=== PATIENT | female | born 1980 | race Caucasian/White ===

== ENCOUNTER 2020-02-24 21:04 | Emergency (ER) | payer BC ==
[~2020-02-24] VITALS: Ht 160 cm; Wt 85.0 kg
[~2020-02-24 21:04] MED LIST: AMOX/K CLAV500 MG OR; AMOXICILLIN500 MG; BENTYL20 MG OR; FLEXERIL OR; IBUPROFEN800 MG OR; LEVAQUIN750 MG OR; LORTAB 5 OR; NO MEDICATIONS; TRAMADOL HCL50 MG OR
[2020-02-24 22:03] LABS: HEMATOCRIT 38.8 % (37.0-47.0); HEMOGLOBIN 13.1 g/dl (12.0-16.0); IMMATURE GRANULOCYTES 0.4 % (0.0-5.0); MEAN CELL VOLUME 88.2 fL CALC (80.0-100.0); MEAN CORPUSCULAR HGB 29.8 pG CALC (26.0-32.0); MEAN CORPUSCULAR HGB CONC 33.8 g/dL CAL (32.0-36.0); NEUT# 7.39 thou/uL (2.00-7.15); RED BLOOD COUNT 4.4 mill/uL (4.20-5.60); RED CELL DISTRI WIDTH 12.7 % (11.5-15.5)
[2020-02-24 22:22] LABS: ALBUMIN 4.3 g/dL (3.2-5.0); ALKALINE PHOSPHATASE 63 u/l (38-126); ANION GAP 11 (6-22 (CALC)); BUN 13 mg/dL (7-17); BUN/CREATININE RATIO 22 (12-20 (CALC)); CARBON DIOXIDE 27 mmol/l (22-30); CHLORIDE 102 mmol/l (95-108); CREATININE 0.6 mg/dL (0.5-1.0); GFR > 60 ML/MIN (>=60 (CALC)); GFR FOR AFR.AMER. > 60 ML/MIN (>=60 (CALC)); POTASSIUM 3.9 mmol/l (3.5-5.1); SGOT/AST 18 u/l (14-36); SODIUM 135 mmol/l (137-146)
[2020-02-24 22:29] LABS: BILIRUBIN, TOTAL 0.1 mg/dL (0.0-1.4)
[2020-02-24 22:33] LABS: MYOGLOBIN 14 ng/mL (0 - 62)
[2020-02-24 22:43] LABS: ACT PARTIAL THROMBO TIME 24.7 SECONDS (20.0-32.5); D-DIMER 0.24 mg/L (0.19-0.60); INTERNATIONAL NORMALIZED RATIO 0.9 RATIO (0.7-1.3)
[2020-02-24] MEDS ORDERED: CYMBALTA30 MG PO (23:08)
[2020-02-24] MEDS ORDERED: LOSARTAN POTASS25 MG PO (23:08)
[2020-02-24 23:45] VITALS: BP 138/74
== END 2020-02-24 23:52 | disposition home or self-care (01) | DRG 204 ==
LOC: ED 21:04
PROVIDERS: Family Medicine
DX: R06.02 Shortness of breath (principal); R68.83 Chills (without fever); R05 Cough; R52 Pain, unspecified; I10 Essential (primary) hypertension; Z20.828 Contact with and (suspected) exposure to other viral communicable diseases